=== PATIENT | female | born 1935 | race Caucasian/White ===

== ENCOUNTER 2016-08-18 23:39 | Emergency (ER) | payer MEDICARE, OTHER ==
[~2016-08-18] VITALS: Ht 162.6 cm; Wt 106.4 kg
[~2016-08-18 23:39] MED LIST: CLOP75TA14 PO; ERGO400T7 PO; LRZ.5T1 PO; PANT40SU PO; SERT100T PO; SMV40T PO; SYN.088T PO; [UNRECOGNIZED DRUG - OTHER]; lomotil
[2016-08-18 23:45] VITALS: BP 155/47; PULSE 77; RESP 22; O2SAT 96
[2016-08-19 00:28] LABS: BASOPHILS % (AUTO) 0.4 % (0-3); EOSINOPHILS % (AUTO) 1.8 % (0-5); MONOCYTES % (AUTO) 10.9 % (4-12); Mean Corpuscular Hemoglobin 29.9 pg (27.0-35.0); NEUTROPHILS % (AUTO) 73.1 % (40-74); Platelet Count 233 bil/L (150-400)
--- NOTE | 2016-08-19 00:46 | ED.REPORT ---
HPI-Chest Pain 40 and Over Date of Service Aug 19, 2016 ED Provider: Saturnino Luz MD The patient is an 81 year old female with history of CAD, previous stroke (2011 , on Plavix), and afib who presents to the ED via EMS complaining of chest pain and shortness of breath. She was started on 2L O2 en route and reports that her chest pain has resolved since. She denies any other symptoms at this time. She does not use O2 at home. Nursing Notes Stated Complaint: CHEST PAIN SHORT OF BREATH Chief Complaint: Chest Pain Nursing Notes Reviewed: Yes Allergies: Coded Allergies: iodine (Verified Allergy, Severe, 08/18/16) Scheduled Clopidogrel-Expunged Drug, Do Not Renew! (Plavix-Expunged Drug, Do Not Renew!) 75 Mg Tablet 75 MG PO DAILY Ergocalciferol-Expunged Drug, Do Not Renew! (Vitamin D2-Expunged Drug, Do Not Renew!) 400 Unit Tablet 50,000 UNIT PO QW Fluticasone-Expunged Drug, Do Not Renew! (Flonase-Expunged Drug, Do Not Renew!) 16 Gm Aero 1 SPR NA DAILY Levothyroxine-Expunged Drug, Do Not Renew! (Synthroid-Expunged Drug, Do Not Renew!) 88 Mcg Tablet 88 MCG PO DAILY Pantoprazole-Expunged Drug, Do Not Renew! (Protonix-Expunged Drug, Do Not Renew! ) 40 Mg/Blist Pack Suspdr.pkt 40 MG PO DAILY Sertraline-Expunged Drug, Choose New Med! (Sertraline-Expunged Drug, Choose New Med!) 100 Mg Tablet 100 MG PO DAILY Simvastatin-Expunged Drug, Choose New Med! (Simvastatin-Expunged Drug, Choose New Med!) 40 Mg Tablet 40 MG PO DAILY Scheduled PRN ([lomotil]) PRN Lorazepam-Expunged Drug, Do Not Renew! (Lorazepam-Expunged Drug, Do Not Renew!) 0.5 Mg Tab 0.5-1 MG PO BID PRN PRN General Time Seen by MD: 00:43 Chief Complaint Chest pain, Shortness of breath Hx Obtained From: Patient Arrived By: Ambulance Sudden in Onset?: No Onset Occurred: 1 - 4 hours ago Symptom Duration: 1 - 4 hours Quality: Painful Severity: Current: No pain currently Severity: Maximum: Moderate Recent Healthcare: No recent doctor visit, No recent hospitalization Similar Sx Previous: No Past Medical History Past Medical History Pituitary tumor Mild dementia Coronary artery disease Reports: Stroke Past Surgical History Lumpectomy Smoking History Never Smoker Social History Alcohol Use: Denies alcohol use Drug Use: Denies drug use Review of Systems Constitutional: Denies: Fever Respiratory: Reports: Non-productive cough, Shortness of breath Cardiovascular: Reports: Chest pain (resolved), Denies: Syncope GI: Denies: Nausea, Vomiting Musculoskeletal: Denies: Back pain, Extremity pain Neurologic: Denies: Change LOC, Problem walking, Seizure, Syncope Complete sys rev & neg: except as marked. Physical Exam Initial Vital Signs Vital Signs (First) Date Time Temp Pulse Resp B/P Pulse Ox O2 Delivery O2 Flow Rate FiO2 08/18/16 23:45 37.0 77 22 155/47 96 Nasal Cannula 2 Initial VS: Reviewed, Vital signs normal Head / Eyes: Atraumatic, Normocephalic, PERRL ENT: Mucous membranes moist, Conjunctiva normal, No scleral icterus Neck: Supple, Non-tender, Full range of motion Back: No CVA tenderness Extremities: Vascular intact, Neuro intact, No swelling, No tenderness Skin: Warm, Dry, No cyanosis Neurologic: Alert, Oriented, Nonfocal Psychiatric: Mood/affect normal, Behavior normal, Normal thought content General/Constitutional: Awake, Alert Respiratory / Chest: Breath sounds = bilat Resp Distress / Stridor: Positive: Resp distress mild Wheezing / Retractions: Positive: Wheeze insp/exp diffuse Tachypneic Cardiovascular: Heart rate NL, Heart sounds NL Abdomen: Atraumatic, Soft, Non-tender, No rebound Interpretation & Diagnostics Lab Results Interpretation Result Diagram: 08/19/16 0016 08/19/16 0016 Test 08/19/16 00:16 White Blood Count 7.3th/mm3 (3.8-10.1) Red Blood Count 4.35mil/mm3 (3.90-5.20) Hemoglobin 13.0g/dL (12.0-15.6) Hematocrit 40.0% (35.0-46.0) Mean Corpuscular Volume 92.0fL (81-100) Mean Corpuscular Hemoglobin 29.9pg (27.0-35.0) Mean Corpuscular Hemoglobin Concent 32.5% (32.0-37.0) Red Cell Distribution Width 14.1% (12.3-15.4) Platelet Count 233bil/L (150-400) Neutrophils (%) (Auto) 73.1% (40-74) Lymphocytes (%) (Auto) 13.4% (14-46) Monocytes (%) (Auto) 10.9% (4-12) Eosinophils (%) (Auto) 1.8% (0-5) Basophils (%) (Auto) 0.4% (0-3) Sodium Level 139mEq/L (134-144) Potassium Level 4.0mEq/L (3.5-5.2) Chloride Level 97mEq/L (97-108) Carbon Dioxide Level 29mmol/L (18-29) Blood Urea Nitrogen 11mg/dL (8-27) Creatinine 0.63mg/dL (0.57-1.00) Estimat Glomerular Filtration Rate 130mL/min (>59) Glucose Level 111mg/dL (60-99) Calcium Level 9.0mg/dL (8.5-10.1) Magnesium Level 1.9mg/dL (1.6-2.6) Total Bilirubin 0.2mg/dL (0.0-1.2) Aspartate Amino Transf (AST/SGOT) 15U/L (0-50) Alanine Aminotransferase (ALT/SGPT) 15U/L (0-32) Alkaline Phosphatase 81U/L (25-165) Troponin T 0.010ug/L (0.0-0.011) Total Protein 6.5g/dL (6.4-8.4) Albumin 4.1g/dL (3.4-5.0) Hold Posada Top Tube Received (Received) Lab values outside NL range: no clinical significance. ECG Interpretation ECG Interpretation: Sinus rhythm with rate 75 Multiple ventricular premature complexes Left anterior fascicular block Probable anterior infarct, age indeterminate Prolonged QT interval Time: 23:54 Interpreted by: ED physician X-Ray Chest Interpretation Chest Xray Interpretation: Normal chest xray View: Portable, 1 view Interpretation / Wet Read by: Wet read ED physician Re-Eval/Medical Decision Med Decision/Clinical Course 81-year-old female with some shortness of breath, negative for pneumonia. She does have some wheezing and felt much better after a nebulizer treatment. She will be discharged home with a albuterol inhaler and spacer. She will follow- up with her primary doctor as needed for persistent symptoms. Source of Hx: Old records Time of Eval: 02:42 Re-Evaluation/Progress Note: Rechecked the patient who reports that she is feeling much better. Discussed imaging and lab results.Discussed diagnosis and plan for discharge. Follow-up instructions and RTER warnings given. The patient understands and agrees to the plan. All questions addressed. Counseled Regarding: Diagnosis, Lab results, Need for follow-up, When/why to return to ED Discharge & Departure Primary Impression: Reactive airway disease Asthma severity: mild intermittent Asthma complication type: with acute exacerbation Qualified Code: J45.21 - Mild intermittent asthma with (acute) exacerbation Disposition: Home Discharge Condition All VS Reviewed: Yes Condition: Stable Patient Instructions: Reactive Airways Disease (ED) Additional Instructions: All of your heart tests are okay tonight. Your chest x-ray is normal, no evidence of pneumonia. Episiotomy does appear to be getting infected. The case was discussed with Dr. Mascorro. She recommended cephalexin 500 mg by mouth 3 times a day, #30 dispensed, metronidazole 500 mg by mouth 3 times a day, #21 dispensed, and oxycodone/acetaminophen 5/325 one pill every 4-6 hours as needed for severe pain, #10 dispensed. Referrals: Keanu Villagomez (PCP) [facility] Attestation Portions of this note were transcribed by Yuri Caballero. I, Dr. Luz, personally performed the history, physical exam and medical decision-making; I reviewed and confirmed the accuracy of the information in the transcribed note. Signed by: Viktoria Ramírez, 08/19/16 02:55. copies to: Keanu Villagomez Howard L MD Aug 19, 2016 00:46 YURI CABALLERO Aug 19, 2016 00:56
[2016-08-19] MEDS ORDERED: Albuterol-Ipratropium 3 mL Inhalation Solution NEB ONE (00:55)
[2016-08-19] MEDS ORDERED: Albuterol 2.5 mg/3 mL Inhalation Solution NEB ONE (00:55)
[2016-08-19 01:02] LABS: Magnesium 1.9 mg/dL (1.6-2.6)
[2016-08-19 01:03] LABS: TROPONIN T 0.01 ug/L (0.0-0.011)
[2016-08-19 01:37] VITALS: PULSE 79; RESP 25; O2SAT 99
[2016-08-19 02:34] VITALS: BP 150/50; PULSE 84; RESP 22; O2SAT 98
[2016-08-19] MEDS ORDERED: _Albuterol-HFA 60 Puff Inhaler INHALATION PRN (02:45)
[2016-08-19 04:22] VITALS: BP 150/50; PULSE 84; RESP 20; O2SAT 97
--- NOTE | 2016-08-19 08:17 | DRSVH ---
PROCEDURE: X-RAY CHEST ONE VIEW, PORTABLE ([id number]) INDICATIONS: cp TECHNIQUE: One view of the chest was acquired. COMPARISON: [facility], CR, XR CHEST 2VW, 10/17/2015, 14:11. FINDINGS: Surgical changes and devices: threat monitoring analyst leads are seen over the chest Lungs and pleura: No pleural effusions or pneumothorax. Lungs are clear. Pulmonary vasculature is n ormal. Mediastinum: Mediastinal contours appear normal. Heart size is mildly enlarged but unchanged. Bones and chest wall: No suspicious bony lesions. Overlying soft tissues appear unremarkable. IMPRESSION: Acute disease is not seen in the portable semiupright chest. Dictated by: Fernando Hernandez M.D. on 08/19/2016 at 8:15 Approved by: Fernando Hernandez M.D. on 08/19/2016 at 8:15
== END 2016-08-19 04:23 | disposition home or self-care (01) ==
LOC: SED 23:39
DX: J45.21 Mild intermittent asthma with (acute) exacerbation (principal); I25.10 Atherosclerotic heart disease of native coronary artery without angina pectoris; I48.91 Unspecified atrial fibrillation; Z79.02 Long term (current) use of antithrombotics/antiplatelets; Z86.73 Personal history of transient ischemic attack (TIA), and cerebral infarction without residual deficits; Z91.041 Radiographic dye allergy status
CPT/HCPCS: 36415; 71010; 80053; 83735; 84484; 85025; 93005; 94664; 99285; J7613; J7620